=== PATIENT | female | born 1940 | race Two or more races ===

== ENCOUNTER 2017-10-15 11:17 | Emergency (ER) | payer SELFPAY ==
[2017-10-15 11:25] VITALS: TEMP 98.5; BMI 34.7
--- NOTE | 2017-10-15 11:31 | PDOC ---
Rapid Medical Evaluation Chief Complaint: Palpitations Time Seen by Provider: 10/15/17 11:25 Medical Evaluation: Allergies Allergy/AdvReac Type Severity Reaction Status Date / Time No Known Allergies Allergy Verified 10/15/17 11:20 Vital Signs Temp Pulse Resp BP Pulse Ox 98.5 F 61 19 142/74 96 10/15/17 11:20 10/15/17 11:20 10/15/17 11:20 10/15/17 11:20 10/15/17 11:20 10/15/17 11:26 pt with dizziness and palpitations for 3 weeks. htn, cholesterol
--- NOTE | 2017-10-15 11:53 | EKG ---
Test Reason : Blood Pressure : / mmHG Vent. Rate : 060 BPM Atrial Rate : 060 BPM P-R Int : 222 ms QRS Dur : 146 ms QT Int : 454 ms P-R-T Axes : 003 -63 094 degrees QTc Int : 454 ms AV dual-paced rhythm with prolonged AV conduction ABNORMAL ECG WHEN COMPARED WITH ECG OF 09-AUG-2016 14:43, ELECTRONIC VENTRICULAR PACEMAKER HAS REPLACED SINUS RHYTHM VENT. RATE HAS INCREASED BY 28 BPM Confirmed by LOUIS LEE, DEMETRI ([id number]) on 10/15/2017 11:53:24 AM Referred By: Confirmed By:DEMETRI MYERS MD
[2017-10-15 12:46] LABS: BASO % 1.1 % (0-2.0); EOS % 2.8 % (0-4.5); HEMATOCRIT 40.9 % (32.4-45.2); HEMOGLOBIN 13.8 GM/dL (10.7-15.3); LYMPH % 33.4 % (8-40); MCH 30.7 pg (25.7-33.7); MCHC 33.8 g/dl (32.0-36.0); MEAN CELL VOLUME 90.9 fl (80-96); MONO % 12.1 % (3.8-10.2); NEUT % 50.6 % (42.8-82.8); PLATELET COUNT 254 K/MM3 (134-434); RDW 13.7 % (11.6-15.6); WHITE BLOOD COUNT 5.7 K/mm3 (4.0-10.0)
[2017-10-15 12:59] LABS: INR 1.02 (0.82-1.09); PROTHROMBIN TIME (PATIENT) 11.5 SEC (9.98-11.88)
[2017-10-15 13:18] LABS: ALBUMIN 3.5 g/dl (3.4-5.0); ANION GAP 10 (8-16); BLOOD UREA NITROGEN 20 mg/dL (7-18); CALCIUM 8.5 mg/dL (8.5-10.1); CHLORIDE 100 mmol/L (98-107); CO2 28 mmol/L (21-32); CREATININE 0.6 mg/dL (0.55-1.02); GLUCOSE,RANDOM 81 mg/dL (74-106); SGPT/ALT 16 U/L (12-78); SODIUM 138 mmol/L (136-145)
[2017-10-15 13:39] LABS: ALK PHOS 73 U/L (45-117); TOT PROT 7.3 g/dl (6.4-8.2)
[2017-10-15 13:47] LABS: POTASSIUM 4.4 mmol/L (3.5-5.1)
[2017-10-15 13:48] LABS: SGOT/AST 26 U/L (15-37)
--- NOTE | 2017-10-15 13:52 | PDOC ---
Attending Attestation - HPI HPI: 10/15/17 17:09 The patient is a 76 year old female with history of hypertension, hyperlipidemia , Mobitz type II s/p pacemaker placement who presents to the ED complaining of approximately 3 weeks of intermittent chest pain with palpitations, dizziness, and weakness. She states her symptoms began while she was in [place] She reports she saw a doctor at the time and continues to experience the same symptoms intermittently. Reports she last had the symptoms of CP, dizziness, weakness 3 days ago. Pt presented to the ED today requesting home health attendant. No fever or chills. No nausea, vomiting, or diarrhea. - Physicial Exam PE: 10/15/17 17:09 GENERAL: Awake, alert, and fully oriented, in no acute distress. Pleasant, smiling during interview HEAD: No signs of trauma EYES: PERRLA, EOMI, sclera anicteric, conjunctiva clear ENT: Auricles normal inspection, hearing grossly normal, nares patent, oropharynx clear without exudates. Moist mucosa NECK: Normal ROM, supple, no lymphadenopathy, JVD, or masses LUNGS: Breath sounds equal, clear to auscultation bilaterally. No wheezes, and no crackles HEART: Regular rate and rhythm, normal S1 and S2, no murmurs, rubs or gallops. Pacemaker palpable in the L upper chest. No redness or ttp. ABDOMEN: Soft, nontender, normoactive bowel sounds. No guarding, no rebound. No masses EXTREMITIES: Normal range of motion, no edema. No clubbing or cyanosis. No cords, erythema, or tenderness BACK: No midline spinal tenderness in cervical/thoracic/lumbar region NEUROLOGICAL: Normal speech, cranial nerves intact, negative pronator drift, 5/ 5 strength in all 4 extremities, normal sensation to light touch in all 4 extremities, normal cerebellar exam, normal gait, normal reflexes and tone SKIN: Warm, Dry, normal turgor, no rashes or lesions noted. Documentation prepared by Lis Huffman, acting as medical assistant float for Dawson Reyna MD. <Lis Huffman - Last Filed: 10/15/17 17:09> - Resident Resident Name: Jesse Gaitan - ED Attending Attestation I have performed the following: I have examined & evaluated the patient, The case was reviewed & discussed with the resident, I agree w/resident's findings & plan, Exceptions are as noted - Medical Decision Making 10/15/17 18:48 73-year-old female presents to the emergency department with intermittent chest pain, dizziness for 3 weeks, last had symptoms 3 days ago. Patient presented today as she wanted our help arranging a home health aide. Vitals unremarkable. Exam within normal limits. EKG is paced. Case discussed with Dr. Stephenson, her operational risk manager who recommended that we could offer the patient admission if she wants to stay for workup of her intermittent CP/dizziness, but if patient does not want to stay she will follow her up as an outpatient. Labs within normal limits. Chest x-ray normal. Discussed our conversation with Dr. Stephenson the patient, and offered her patient admission for workup of her symptoms, however patient does not want to stay in the emergency department and states she has not had any symptoms in 3 days and is currently asymptomatic. She reports she will follow-up with Dr. Chavez as soon as possible. Return precautions given. I discussed the physical exam findings, ancillary test results and final diagnoses with the patient. I answered all of the patient's questions. The patient was satisfied with the care received and felt comfortable with the discharge plan and treatment plan. The patient will call their primary care physician within 24 hours to arrange follow-up and will return to the Emergency Department with any new, persistent or worsening symptoms. <Dawson Reyna - Last Filed: 10/15/17 18:51>
--- NOTE | 2017-10-15 14:27 | PDOC ---
History of Present Illness - General Chief Complaint: Palpitations Stated Complaint: DIZZINESS,PALPITATIONS&SOB. Time Seen by Provider: 10/15/17 11:25 History Source: Patient Exam Limitations: Language Barrier - History of Present Illness Initial Comments: 10/15/17 14:20 Patient is a 76F with history of HTN, HLD, Mobitz type 2 block causing symptomatic bradycardia with ICU admission, s/p pacemaker placement, here today complaining of chest pain, weakness, dizziness and palpitations over the past 3 weeks. She states that she's coming in today because her symptoms have increased in the past two days and that she wants to get a mobile home installer. She reports being checked in the [place] 3 weeks ago, but is still concerned. Denies nausea, vomiting, fevers, chills. Does report pain around her pacemaker insertion site. Patient says that she currently does not have any pain. Past History - Past Medical History Allergies/Adverse Reactions: Allergies Allergy/AdvReac Type Severity Reaction Status Date / Time No Known Allergies Allergy Verified 10/15/17 11:20 Home Medications: Ambulatory Orders Acetaminophen [Tylenol .Regular Strength -] 650 mg PO Q4H PRN #30 tablet Amlodipine Besylate [Norvasc -] 2.5 mg PO DAILY #30 tablet 08/13/16 Ranitidine HCl [Zantac] 150 mg PO DAILY #30 tablet 08/13/16 COPD: No HTN: Yes Hypercholesterolemia: Yes - Suicide/Smoking/Psychosocial Hx Smoking History: Never smoked Hx Alcohol Use: No Drug/Substance Use Hx: No Review of Systems - Review of Systems Comments:: 10/15/17 14:25 GENERAL/CONSTITUTIONAL: No fever or chills. Positive for weakness. HEAD, EYES, EARS, NOSE AND THROAT: No change in vision. No sore throat. CARDIOVASCULAR: Positive for chest pain and shortness of breath RESPIRATORY: No cough, wheezing, or hemoptysis. GASTROINTESTINAL: No nausea, vomiting, diarrhea. Positive for constipation. GENITOURINARY: No dysuria, frequency, or change in urination. MUSCULOSKELETAL: Positive for left shoulder pain. No neck or back pain. SKIN: No rash NEUROLOGIC: Positive for headache. Negative for vertigo, loss of consciousness, or change in strength/sensation. ENDOCRINE: No increased thirst. No abnormal weight change HEMATOLOGIC/LYMPHATIC: No anemia, easy bleeding, or history of blood clots. ALLERGIC/IMMUNOLOGIC: No hives or skin allergy. *Physical Exam - Vital Signs Last Vital Signs Temp Pulse Resp BP Pulse Ox 98.5 F 58 L 17 112/78 96 10/15/17 11:20 10/15/17 14:04 10/15/17 14:04 10/15/17 14:04 10/15/17 14:04 - Physical Exam Comments: 10/15/17 14:28 GENERAL: Awake, alert, and fully oriented, in no acute distress HEAD: No signs of trauma, normocephalic, atraumatic EYES: PERRLA, EOMI, sclera anicteric, conjunctiva clear ENT: Auricles normal inspection, hearing grossly normal, nares patent, oropharynx clear without exudates. Moist mucosa NECK: Normal ROM, supple, no lymphadenopathy, JVD, or masses CHEST: Well healed pacemaker scar, no erythema, no discharge LUNGS: No distress, speaks full sentences, clear to auscultation bilaterally HEART: Regular rate and rhythm, normal S1 and S2, no murmurs, rubs or gallops, peripheral pulses normal and equal bilaterally. ABDOMEN: Soft, nontender, normoactive bowel sounds. No guarding, no rebound. No masses EXTREMITIES: Normal inspection, Normal range of motion, no edema. No clubbing or cyanosis. NEUROLOGICAL: Cranial nerves II through XII grossly intact. Normal speech, no focal sensorimotor deficits SKIN: Warm, Dry, normal turgor, no rashes or lesions noted. ED Treatment Course - LABORATORY CBC & Chemistry Diagram: 10/15/17 12:33 10/15/17 12:33 - ADDITIONAL ORDERS Additional order review: Laboratory Results 10/15/17 10/15/17 12:33 12:33 PT with INR 11.50 INR 1.02 Sodium 138 Potassium 4.4 Chloride 100 Carbon Dioxide 28 Anion Gap 10 BUN 20 H Creatinine 0.6 Creat Clearance w eGFR > 60 Random Glucose 81 Calcium 8.5 Total Bilirubin 1.0 D AST 26 ALT 16 Alkaline Phosphatase 73 Creatine Kinase 92 Troponin I < 0.02 Total Protein 7.3 Albumin 3.5 10/15/17 12:33 RBC 4.50 MCV 90.9 MCHC 33.8 RDW 13.7 MPV 8.0 D Neutrophils % 50.6 Lymphocytes % 33.4 Monocytes % 12.1 H Eosinophils % 2.8 Basophils % 1.1 Medical Decision Making - Medical Decision Making 10/15/17 14:29 Patient is 76F with history of HTN, HLD, Mobitz type 2 block s/p pacemaker placement here today complaining of chest pain and weakness. Vital signs stable and normal. History is inconsistent from patient. At various points during history, she says that she has had worsening symptoms and that they've stayed the same. Patient stated she was hoping to get a mobile home installer after this visit. Field Mechanic/Site Lead used during history gathering. Will do cardiac workup and reassess. 10/15/17 15:09 Laboratory Tests 10/15/17 10/15/17 10/15/17 12:33 12:33 12:33 WBC 5.7 Hgb 13.8 Hct 40.9 Plt Count 254 D INR 1.02 BUN 20 H Creatinine 0.6 Creat Clearance w eGFR > 60 Troponin I < 0.02 CBC normal. INR normal. CMP reassuring. Troponin undetectable. 10/15/17 15:12 EKG shows AV dual-paced rhythm with prolonged AV conduction (NH = 222ms). No acute ischemic changes. Sgarbossa negative. No significant t wave changes. 10/15/17 15:14 CXR shows mild pulmonary vascular congestion, no infiltrate. Cardiomegaly. Call out to Dr Almaguer, her medart operator. 10/15/17 15:47 Dr Almaguer contacted, reports that patient has missed several appointments due to going to [facility]. Patient now states that her symptoms has resolved. Denies chest pain, shortness of breath. Explained to patient that we do not set up home attendants in the ED. Did shared decision making with patient. Patient states that she does not want to stay in the hospital. Risks and benefits of staying in the hospital were explained using an state epidemiologist, patient demonstrated understanding. Does not wish to stay, saying she can see Dr Almaguer as an outpatient. Given cardiology follow up and return precautions. *DC/Admit/Observation/Transfer Diagnosis at time of Disposition: Chest pain - Discharge Dispostion Disposition: HOME Condition at time of disposition: Good Admit: No - Referrals Referrals: Alison Almaguer MD [Staff Physician] - - Patient Instructions Printed Discharge Instructions: DI for Chest Pain Additional Instructions: Por favor llame al Dr. Almaguer hoy para programar etienne rachel. Por favor regrese si tiene algn sntoma nuevo, que empeore o que le afecte. Print Language: BAHRAINI - Post Discharge Activity
[2017-10-15 15:55] VITALS: BP 140/95; PULSE 60
== END 2017-10-15 15:57 | disposition home or self-care (01) ==
LOC: JER 11:17
DX: R07.9 Chest pain, unspecified (principal); I10 Essential (primary) hypertension; E78.5 Hyperlipidemia, unspecified; I44.1 Atrioventricular block, second degree; Z95.0 Presence of cardiac pacemaker
CPT/HCPCS: 36415; 71045-TC-FY; 80053; 82550; 84484; 85025; 85610; 93005; 93010; 99285-25